=== PATIENT | male | born 1990 | race Caucasian/White ===

== ENCOUNTER 2021-05-11 09:37 | Emergency (ER) | payer OTHER ==
--- NOTE | 2021-05-11 11:10 | CR ---
Chest: Portable view of the chest was obtained. Comparison: Prior chest x-ray of 05/01/21. Heart size and mediastinum are normal. Slight decreased density within the left lung base is seen from prior study. Lungs otherwise are clear. Bony structures are grossly intact. Impression: 1. Slight decreased density within the left lung base from prior study compatible with mild improvement. 2. Nothing acute is otherwise seen on portable chest x-ray. Diagnostic code #2
--- NOTE | 2021-05-11 11:30 | EDM.PDOC ---
ED HPI GENERAL MEDICAL PROBLEM - General Chief Complaint: Chest Pain Stated Complaint: CHEST PAIN X 3 DAYS Time Seen by Provider: 05/11/21 11:10 Source of Information: Reports: Patient, Old Records, RN Notes Reviewed History Limitations: Reports: No Limitations - History of Present Illness INITIAL COMMENTS - FREE TEXT/NARRATIVE: Patient is a 30-year-old male who presents to the ER for the evaluation of his pleuritic type chest pain. Patient states that this started Michi night, and has progressively worsened throughout the last 3 days. He has been taking aspirin during this time, but no Tylenol or ibuprofen has been taken. States that the pain seems to worsen when he lays down, or takes a deep breath. He did have a recent COVID-19 infection, he states that he got sick on about 24 April was diagnosed on May 01, and was cleared from the state for ongoing COVID-19 illness. The patient was seen in clinic by Nupur Castillo on 05/01/2021, he had a chest x-ray and a CTA of his chest, and all of this showed signs of Covid type pneumonia in the left lower and left upper lung of his chest. No PE was identified. Patient states he is not having any sort of hemoptysis. He is not tachycardic, not hypoxic by any means. He is not had any ongoing fevers or chills, shortness of breath, or any sort of nausea/vomiting/diarrhea. Chest Pain Score (Numeric/FACES): 7 - Related Data Allergies Allergy/AdvReac Type Severity Reaction Status Date / Time No Known Allergies Allergy Verified 05/11/21 10:04 Home Meds: Home Meds . [No Known Home Meds] 05/11/21 [History] Past Medical History - Infectious Disease History Infectious Disease History: Reports: Novel Coronavirus (04/24/21) Social & Family History - Tobacco Use Tobacco Use Status *Q: Never Tobacco User ED ROS GENERAL - Review of Systems Review Of Systems: Comprehensive ROS is negative, except as noted in HPI. ED EXAM, GENERAL - Physical Exam Exam: See Below Exam Limited By: No Limitations General Appearance: Alert, WD/WN, No Apparent Distress Respiratory/Chest: No Respiratory Distress, Lungs Clear, Normal Breath Sounds, No Accessory Muscle Use, Other (L chest tender to palpation) Cardiovascular: Normal Peripheral Pulses, Regular Rate, Rhythm, No Edema Peripheral Pulses: 2+: Radial (L), Radial (R) GI/Abdominal: Normal Bowel Sounds, Soft, Non-Tender, No Distention, No Mass Extremities: Normal Inspection, Normal Capillary Refill Neurological: Alert, Oriented, Normal Cognition, No Motor/Sensory Deficits Psychiatric: Normal Affect, Normal Mood Skin Exam: Warm, Dry, Intact, Normal Color, No Rash #1 Interpretation EKG Date: 05/11/21 Time: 09:56 Rhythm: NSR Rate (Beats/Min): 75 Massey: Normal P-Wave: Present QRS: Normal ST-T: Normal QT: Normal Comparison: NA - No Prior EKG EKG Interpretation Comments: No obvious ischemia or acute ST changes noted, reviewed by myself and Dr. Burgos. Course - Vital Signs Last Recorded V/S: Last Vital Signs Temp 97.8 F 05/11/21 09:57 Pulse 71 05/11/21 09:57 Resp 16 05/11/21 09:57 BP 113/56 L 05/11/21 09:57 Pulse Ox 97 05/11/21 09:57 - Orders/Labs/Meds Labs: Laboratory Tests 05/11/21 05/11/21 05/11/21 Range/Units 10:18 10:18 10:18 WBC 7.17 (4.23-9.07) K/mm3 RBC 4.60 L (4.63-6.08) M/mm3 Hgb 13.9 D (13.7-17.5) gm/dl Hct 41.4 (40.1-51.0) % MCV 90.0 (79.0-92.2) fl MCH 30.2 (25.7-32.2) pg MCHC 33.6 (32.2-35.5) g/dl RDW Std Deviation 40.7 (35.1-43.9) fL Plt Count 355 H D (163-337) K/mm3 MPV 10.4 (9.4-12.3) fl Neut % (Auto) 74.4 H (34.0-67.9) % Lymph % (Auto) 10.9 L (21.8-53.1) % [place] % (Auto) 13.7 H (5.3-12.2) % Eos % (Auto) 0.6 L (0.8-7.0) Baso % (Auto) 0.3 (0.1-1.2) % Neut # (Auto) 5.34 (1.78-5.38) K/mm3 Lymph # (Auto) 0.78 L (1.32-3.57) K/mm3 [place] # (Auto) 0.98 H (0.30-0.82) K/mm3 Eos # (Auto) 0.04 (0.04-0.54) K/mm3 Baso # (Auto) 0.02 (0.01-0.08) K/mm3 D-Dimer, Quantitative 1.36 H (0.19-0.50) mg/L Sodium 139 (136-145) mEq/L Potassium 4.1 (3.5-5.1) mEq/L Chloride 104 (98-107) mEq/L Carbon Dioxide 26 (21-32) mEq/L Anion Gap 13.1 (5-15) BUN 16 (7-18) mg/dL Creatinine 0.9 (0.7-1.3) mg/dL Est Cr Clr Drug Dosing 135.63 mL/min Estimated GFR (MDRD) > 60 (>60) mL/min BUN/Creatinine Ratio 17.8 (14-18) Glucose 101 H (70-99) mg/dL Calcium 9.1 (8.5-10.1) mg/dL Total Bilirubin 0.8 (0.2-1.0) mg/dL AST 63 H (15-37) U/L ALT 183 H (16-63) U/L Alkaline Phosphatase 54 (46-116) U/L Troponin I < 0.017 (0.00-0.056) ng/mL Total Protein 7.3 (6.4-8.2) g/dl Albumin 3.7 (3.4-5.0) g/dl Globulin 3.6 gm/dL Albumin/Globulin Ratio 1.0 (1-2) - Re-Assessments/Exams Free Text/Narrative Re-Assessment/Exam: 05/11/21 11:30 Patient presents to the ER for his chest pain. After talking with him and reviewing old labs and imaging films, it does appear as if he is experiencing some sort of pleuritic type chest pain. We will go ahead and have him do conservative measures at home, have him try 600 mg ibuprofen every 6 hours for ongoing management, and have him follow-up next week if symptoms do not seem to be getting better. Departure - Departure Time of Disposition: 11:30 Disposition: Home, Self-Care 01 Condition: Good Clinical Impression: Pleuritic chest pain - Discharge Information *PRESCRIPTION DRUG MONITORING PROGRAM REVIEWED*: No *COPY OF PRESCRIPTION DRUG MONITORING REPORT IN PATIENT MEI: No Instructions: Pleurodynia Referrals: PCP,None [Primary Care Provider] - Forms: ED Department Discharge Additional Instructions: You have been evaluated in the ED for your chest discomfort. Your x-ray demonstrated left-sided viral type pneumonia, consistent with r esolving COVID-19 infection. Prior imaging studies were reviewed, and this density seem to have lessened from your last visit on 05/01/2021. Laboratory evaluation today was unremarkable. Although your D-dimer was slightly elevated at 1.36, this is typical for COVID-19, and due to your clinical findings like regular heart rate, regular oxygen saturations, there is no thought of a PE at today's visit. Your prior CTA, done on 05/01/2021 demonstrated no findings of a PE or blood clot in your lungs. To reduce your risk for radiation exposure, a CTA was not redone at today's visit. Recommend that you take ibuprofen 600mg q6 hrs for pain relief. Please do so until you have a tolerable level of pain with activity. Do not exceed 3200mg ibuprofen in a 24 hour time period. Please follow-up with your regular provider for re-evaluation, if your injury is not feeling much better in roughly 7 to 10 days time. If you do not have a primary care provider already, I recommend that you follow- up with a provider in our clinic, any family practice provider would be able to provide you with the services. Our clinic telephone number [phone], please call in the morning to obtain an appointment with the provider, for follow-up of your symptoms that prompted your ER visit today. Please return to ED if your symptoms should change or worsen. Sepsis Event Note (ED) - Evaluation Sepsis Screening Result: No Definite Risk - Focused Exam Vital Signs: Vital Signs Temp Pulse Resp BP Pulse Ox 05/11/21 09:57 97.8 F 71 16 113/56 L 97
== END 2021-05-11 11:45 | disposition home or self-care (01) ==
LOC: JD.ED 09:37
DX: R07.81 Pleurodynia (principal); Z86.16 Personal history of COVID-19
CPT/HCPCS: 36415; 71045; 71045-26; 80053; 84484; 85025; 85379; 93005; 99284-25